=== PATIENT | female | born 1990 | race Caucasian/White ===

== ENCOUNTER 2018-08-23 13:44 | Emergency (ER) | payer OTHER ==
[~2018-08-23] VITALS: Ht 180.3 cm; Wt 70.8 kg
[2018-08-23] MEDS ORDERED: PROTONIX20 MG PO (13:51)
[2018-08-23] MEDS ORDERED: OBTREX DHA PRE1 EACH PO (13:51)
== END 2018-08-23 16:11 | disposition home or self-care (01) ==
LOC: ER 13:44
DX: O26.892 Other specified pregnancy related conditions, second trimester (principal); K29.70 Gastritis, unspecified, without bleeding; Z34.02 Encounter for supervision of normal first pregnancy, second trimester

== ENCOUNTER 2018-12-06 12:07 | Inpatient (IN) | payer OTHER ==
[~2018-12-06] VITALS: Ht 180.3 cm; Wt 3.2 kg
[~2018-12-06 12:07] MED LIST: OBTREX DHA PRE1 EACH PO; PROTONIX20 MG PO
[2018-12-06] MEDS ORDERED: OBSTETRIX EC C1 EACH PO (12:34)
[2018-12-06] MEDS ORDERED: FEROSUL325 MG PO (12:35)
[2018-12-11] MEDS ORDERED: [UNRECOGNIZED DRUG - OTHER] IM (08:14)
== END 2018-12-12 11:39 | DRG 788 ==
LOC: O/R 12-09 05:54 → OB/GYN 12-09 05:54
PROVIDERS: ADMIT Specialist
PROC: 4A1HXCZ Monitoring of Products of Conception, Cardiac Rate, External Approach (ICD-10-PCS; 2018-12-09)
PROC: 4A033R1 Measurement of Arterial Saturation, Peripheral, Percutaneous Approach (ICD-10-PCS; 2018-12-09)
PROC: 10D00Z1 Extraction of Products of Conception, Low, Open Approach (ICD-10-PCS; principal; 2018-12-09 07:00)
DX: O34.211 Maternal care for low transverse scar from previous cesarean delivery (principal); O99.013 Anemia complicating pregnancy, third trimester; D64.89 Other specified anemias; Z22.330 Carrier of Group B streptococcus; O75.82 Onset (spontaneous) of labor after 37 completed weeks of gestation but before 39 completed weeks gestation, with delivery by (planned) cesarean section; Z3A.38 38 weeks gestation of pregnancy; Z37.0 Single live birth

== ENCOUNTER 2022-09-23 19:40 | Emergency (ER) | payer OTHER ==
[~2022-09-23] VITALS: Ht 180.3 cm; Wt 70.3 kg
[~2022-09-23 19:40] MED LIST changes: +FEROSUL325 MG PO; +OBSTETRIX EC C1 EACH PO; +[UNRECOGNIZED DRUG - OTHER] IM
== END 2022-09-23 21:06 | disposition home or self-care (01) ==
LOC: ER 19:40
DX: B02.9 Zoster without complications (principal)

== ENCOUNTER 2023-01-12 11:00 | Inpatient (IN) | payer OTHER ==
[~2023-01-12] VITALS: Ht 154.9 cm; Wt 3.2 kg
[2023-01-22] MEDS ORDERED: RHOGAM ULTR1500 UNIT IM (09:37)
== END 2023-01-24 15:10 | disposition home or self-care (01) | DRG 785 ==
LOC: LDR 01-21 01:27 → OB/GYN 01-21 04:26
PROVIDERS: ADMIT Specialist; ATTEND Specialist
PROC: 0UB70ZZ Excision of Bilateral Fallopian Tubes, Open Approach (ICD-10-PCS; 2023-01-21)
PROC: 4A1HXCZ Monitoring of Products of Conception, Cardiac Rate, External Approach (ICD-10-PCS; 2023-01-21)
PROC: 10D00Z1 Extraction of Products of Conception, Low, Open Approach (ICD-10-PCS; principal; 2023-01-21 07:00)
DX: O34.211 Maternal care for low transverse scar from previous cesarean delivery (principal); Z3A.39 39 weeks gestation of pregnancy; Z37.0 Single live birth; Z20.822 Contact with and (suspected) exposure to COVID-19; Z30.2 Encounter for sterilization